=== PATIENT | female | born 1930 | race Caucasian/White ===

== ENCOUNTER 2020-08-17 11:10 | Emergency (ER) | payer MEDICARE ==
[~2020-08-17] VITALS: Ht 152.4 cm; Wt 42.3 kg
--- NOTE | 2020-08-17 11:20 | PHYS DOC ---
General Adult EDM: Chief Complaint: MECHANICAL FALL HPI: HPI: 89 yo F PMH primary progressive aphasia/dementia, gerd and hypothyroidism, presents the ED brought in by daughter with concern for possible fall. Daughter reports her mother is aphasic and does not speak. Had a full inpatient work-up 2 months ago (w/mri) that diagnosed pts' PPA, moved pt here from [place] so her daughter could care for her. History limited from patient. Daughter reports patient was seen normal at 7 AM but around 10:20 AM she came back and found patient on the floor just outside the bathroom-rash on left hip and both knees. Unsure if tetanus is up-to-date. Is not on any anticoagulation. Review of Systems: Review of Systems: ROS: very limited, pt does not write, able to respond via thumbs up means yes and down means no Allergies: Allergies: Allergies Coded Allergies Type Severity Reaction Last Updated Verified No Known Drug Allergies 08/17/20 No Physical Exam: PE: Constitutional: very thin and frail appearing HENT: right parietal hematoma Eyes: EOMI, conjunctiva normal, no discharge. Neck: Normal range of motion, supple, Cardiovascular: S1/2 present, regular rhythm Lungs & Thorax: bilateral equal chest rise, no tachypnea or increased work of breathing Abdomen: soft, no tenderness, Skin: Warm, dry, no erythema, abrasion (appears to be from crawling on carpet/friction rub) over both knees and left hip Back: No midline ttp, thoracic kyphosis, no CVA tenderness. [] Extremities: No tenderness, no cyanosis, no edema Neurologic: Alert, moving and four extemities and rolls on both sides Psychologic: Affect normal, mood normal. [] EKG: EKG: Sinus rhythm at 93 bpm, left axis deviation, normal intervals, no obvious T wave inversions, no ST elevations or ST depressions Q waves V4, V5 and V6 Radiology/Procedures: Radiology/Procedures: IMAGING REPORT Signed PATIENT: LUIS ALFREDO YEH ACCOUNT: [id number] : 1930 LOCATION: ER AGE: 89 SEX: F EXAM STATUS: PRE ER ORD. PHYSICIAN: JAMIE BUNCH DO REASON: fall? PROCEDURE: CT HEAD AND CERVICAL SPINE WO EXAM: CT head and cervical spine without contrast INDICATION: Fall COMPARISON: None TECHNIQUE: Axial CT imaging through the head and cervical spine without intravenous contrast. Sagittal and coronal reformats were obtained of the cervical spine. One or more of the following individualized dose reduction techniques were utilized for this examination: 1. Automated exposure control 2. Adjustment of the mA and/or kV according to patient size 3. Use of iterative reconstruction technique. FINDINGS: CT head: Artifact limits evaluation of the posterior fossa. There are possible old infarcts in the cerebellum. The ventricles and sulci are moderately enlarged, reflecting age-related volume loss. There is a mild burden of periventricular and deep hypoattenuating white matter lesions. Moore-white matter differentiation is maintained. There is no intracranial hemorrhage, acute infarct, or mass lesion. Basal cisterns are clear. The skull is intact. There is a right posterior parietal scalp hematoma.. Paranasal sinuses and mastoid air cells are clear. Globes and orbits are intact.. CT cervical spine: Evaluation of the cervical spine is limited by motion artifact. There is a compression fracture of T1 with 40 percent vertebral body height loss anteriorly. No retropulsion of cortex. Incompletely visualized superior endplate fracture of T4. Mild degenerative irregularities of the remaining visualized endplates. There is multilevel facet arthrosis and foraminal narrowing. No definite canal narrowing. Pleural-parenchymal scarring in the apices. There are calcifications in the carotid bifurcations. Alignment is normal. Moderate disc space narrowing throughout the cervical spine with small osteophytes, greatest at C6-C7 IMPRESSION: 1. No acute intracranial abnormality. Possible old cerebellar infarcts, evaluation of the posterior fossa is limited by artifact. 2. Right parietal scalp hematoma. 3. Mild superior endplate compression fracture of T1 and incompletely visualized compression fracture T4. These are age-indeterminate and may be old, however acute fractures are not excluded. Consider CT of the thoracic spine. Electronically signed by: Kena Vallejo MD (08/17/2020 12:46 PM) [id number] DICTATED AND SIGNED BY: KENA VALLEJO MD DATE: 08/17/201214 CC: MARCIAL IRVING; JAMIE BUNCH DO ~MTH0 0 IMAGING REPORT Signed PATIENT: LUIS ALFREDO YEH ACCOUNT: [id number] : 1930 LOCATION: ER AGE: 89 SEX: F EXAM STATUS: PRE ER ORD. PHYSICIAN: JAMIE BUNCH DO REASON: fall PROCEDURE: LEFT FEMUR XRAY Examination: XR PELVIS 1-2V, XR FEMUR_LEFT 1 VIEW, XR KNEE 3 VIEWS History: Reason: fall /pain Comparison/Correlation: None Findings: Frontal view of the pelvis, frontal and frog-leg lateral views of the left femur, 3 views of the right knee and 3 views of the knee were obtained. L5-S1 disc space narrowing. Osteopenia noted. Sacroiliac and hip joint spaces are unremarkable. Left femur is unremarkable. Knee joint spaces are adequate. Impression: No acute fracture or bony destruction. Osteopenia. No appreciable degenerative changes of the hip joints or knee joints especially for the patient's age. Consider further imaging if occult fracture is a persistent concern. Electronically signed by: Salvatore Yoder MD (08/17/2020 12:26 PM) [id number] DICTATED AND SIGNED BY: SALVATORE YODER MD DATE: 08/17/201218 CC: PCP,NO; JAMIE BUNCH DO ~MTH0 0 IMAGING REPORT Signed PATIENT: LUIS ALFREDO YEH ACCOUNT: [id number] : 1930 LOCATION: ER AGE: 89 SEX: F EXAM STATUS: PRE ER ORD. PHYSICIAN: JAMIE BUNCH DO REASON: fall PROCEDURE: CHEST AP ONLY Examination: XR CHEST 1V History: Reason: fall pain Comparison/Correlation: None Findings: Frontal view chest was obtained. Heart size is normal. No infiltrate or effusion. Osteopenia noted. No acute or displaced fracture identified. Questionable deformity at the lateral left mid thoracic ribs which raise question of old fractures. Evaluation is somewhat limited due to patient rotation on the image acquired. Impression: No active disease. Consider further imaging if acute fracture is a persistent concern Electronically signed by: Salvatore Yoder MD (08/17/2020 12:19 PM) [id number] DICTATED AND SIGNED BY: SALVATORE YODER MD DATE: 08/17/207 CC: MARCIAL IRVING; JAMIE BUNCH DO ~MTH0 0 IMAGING REPORT Signed PATIENT: LUIS ALFREDO YEH ACCOUNT: [id number] : 1930 LOCATION: ER AGE: 89 SEX: F EXAM STATUS: REG ER ORD. PHYSICIAN: JAMIE BUNCH DO REASON: fall PROCEDURE: CT CHEST ABD PELVIS W/CONTRAST Exam: CT of chest, abdomen and pelvis with contrast. CT thoracic and lumbar spine INDICATION: Fall TECHNIQUE: Sequential axial images through the chest, abdomen and pelvis obtai gaetano following the administration of 75 mL of Isovue-370 IV contrast. Sagittal and coronal reformatted images were reconstructed from the axial data and reviewed. Cone-down reconstructed images of the thoracic and lumbar spine were also reviewed. Comparisons: None FINDINGS: Visualized portions of the thyroid are unremarkable. No enlarged mediastinal lymph nodes. Heart size is normal. Small pericardial effusion. Coronary artery calcification. Thoracic aorta has normal course and caliber. Pulmonary artery is not enlarged. Airways are patent. Strandy opacities at dependent portion lungs likely representing atelectasis. No consolidation or pneumothorax. No pleural effusion. Mild diffuse hepatic steatosis. Spleen, pancreas, and adrenals are unremarkable. Gallbladder surgically absent. No perinephric inflammation or hydronephrosis. No renal or ureteral calculi are identified. Bladder is decompressed not well evaluated. Uterus is not enlarged. No abnormal adnexal mass. Extensive diverticulosis is noted at the sigmoid colon without evidence of acute diverticulitis. Main of the large and small bowel are unremarkable. Appendix is not identified. No free intra-abdominal air or fluid. No obstruction. Abdominal aorta has a normal course and caliber. Abdominal vasculature is patent. No enlarged intra-abdominal lymph nodes are identified. No suspicious osseous lesions or acute fractures. Thoracolumbar spine: There is mild compression deformity involving superior endplate of T1 and T4. There is wedge deformity of the T12 and L1 vertebral bodies. Displaced fracture to the thoracolumbar spine is not identified. Multilevel spondylotic changes lumbar spine greatest at L5-S1 with severe degenerative disease. There is diffuse bilateral facet arthropathy also noted. IMPRESSION: 1. Compression deformities involving superior endplates of T1 and T4. Wedge compression deformities of T12 and L1. These are technically age indeterminate. Correlate with point tenderness. 2. Otherwise, no sequela acute traumatic injury identified within the chest, abdomen or pelvis. Exposure: One or more of the following in the visualized dose reduction techniques were utilized for this examination: 1. Automated exposure control 2. Adjustment of the MA and/or KV according to patient size 3. Use of iterative of reconstructive technique Electronically signed by: Sandrine Dalal MD (08/17/2020 3:54 PM) [facility] DICTATED AND SIGNED BY: SANDRINE DALAL MD DATE: 08/17/20 1536 CC: PCP,NO; VO,JAMIE Luna DO ~MTH0 0 Heart Score: Risk Factors: Risk Factors: DM, Current or recent (<one month) smoker, HTN, HLP, family history of CAD, obesity. Risk Scores: Score 0 - 3: 2.5% MACE over next 6 weeks - Discharge Home Score 4 - 6: 20.3% MACE over next 6 weeks - Admit for Clinical Observation Score 7 - 10: 72.7% MACE over next 6 weeks - Early Invasive Strategies Course & Med Decision Making: Course & Med Decision Making Pertinent Labs and Imaging studies reviewed. (See chart for details) Concern for accidental fall with scalp hematoma, uti and old compression frac tures-on re-exam, no midline ttp over these regions. Daughter reports a fall in June, pt uses a walker. I spoke with Dr. Saucedo, neurology regarding patient's CT scanner head concerning for possible occipital infarct. He does not recommend MRI at his time, suspects chronic cva. Pt with no new neurologic deficits and is acting at her baseline. I did recommend admission for syncope, daughter declined. Pt is also refusing (thumbs down= no, shakes head no). Patient also with ketonuria, no anion gap and her heart rate has increased -I discussed this could represent infection versus dehydration, cannot exclude sepsis. Daughter reports she will observe patient very closely will return to the ER if her exam should change. Patient has had barely anything to eat or drink today. Was treated with fosfomycin in the ED. Strict ED return precautions were given for altered mental status, lethargy, distress, neurologic deficits or persistent nausea and vomiting. Encouraged urgent outpatient follow-up with PMD and neurology/cardiology. Life-threatening processes were considered but are low suspicion at this time, given history and physical exam. Pt was educated on all prescription medications and adverse effects. All patient's questions were answered and pt was stable at time of discharge. Life/limb-threatening differential includes but is not limited to, cardiac arrthymia/syncope, sepsis, intracranial hemorrhage, diffuse axonal injury, spinal cord syndrome, unstable cervical fracture or SCIWORA, fractures or joint dislocations, neurovascular injuries, organ injury or laceration, pneumothorax, pneumoperitoneum, pericardial tamponade, unstable pelvic fracture, compartment syndrome, flail chest or respiratory distress, burn injury or asphyxiation I spoken with the patient and her caregivers. I explained the patient's condition, diagnoses and treatment plan based on the information available to me at this time. I have answered the patient and her caregiver's questions and addressed any concerns. The patient and her caregivers have a good understanding of patient's diagnosis, condition and treatment plan as can be expected at this point. Vital signs have been stable. Patient's condition is stable and appropriate for discharge from the emergency department. Patient will pursue further outpatient evaluation with primary care physician or other designated or consulting physician as outlined in the discharge instructions. The patient and/or caregivers are agreeable to this plan of care and follow-up instructions have been explained in detail. The patient and/or caregivers have received these instructions in written form and have expressed an understanding of the discharge instructions. The patient and/or caregivers are aware that any significant change of condition or worsening of symptoms should prompt immediate return to this or the closest emergency department or call to 1. Roland Disclaimer: Roland Disclaimer: This electronic medical record was generated, in whole or in part, using a voice recognition dictation system. Departure Departure: Impression: Primary Impression: Fall Additional Impressions: UTI (urinary tract infection) Scalp hematoma Ketonuria Thoracic compression fracture Lumbar compression fracture Disposition: 01 DC HOME SELF CARE/HOMELESS Condition: STABLE Referrals: PCP,NO (PCP) FOLLOW UP WITH FAMILY MEDICINE: [facility], [facility] [address] [address] [place] [address] [place] [facility] [address] [place] [address], Patient Instructions: Back, Compression Fracture, Dehydration, Adult, Head Injury, Adult, Hematoma, Urinary Tract Infection Additional Instructions: FOLLOW UP WITH NEUROLOGY: Irma Saucedo MD [address] [facility], [address] [place] [address] OR [address] [place] [address] FOLLOW UP WITH NEUROLOGY: [facility] Address: [address] [facility] [address] [place] [address] FOLLOW UP WITH CARDIOLOGY: [facility] Address: [address] [facility] [address] [place] [address] EMERGENCY DEPARTMENT GENERAL DISCHARGE INSTRUCTIONS Thank you for coming to [facility] (ED) today and trusting us with you care. We trust that you had a positivie experience in our Emergency Department. If you wish to speak to the department management, you may call the director at [phone]. YOUR FOLLOW UP INSTRUCTIONS ARE FOLLOWS: 1. Do you have a private Doctor? If you do not have a private doctor, please ask for a resource list of physicians or clinics that may be able to assist you with follow up care. 2. The Emergency Physician has interpreted your x-rays. The X-Ray specialist will also review them. If there is a change in the findings, you will be notified in 48 hours when at all possible. 3. A lab test or culture has been done, your results will be reviewed and you will be notified if you need a change in treatment. ADDITIONAL INSTRUCTIONS AND INFORMATION: 1. Your care today has been supervised by a physician who is specially trained in emergency care. Many problems require more than one evaluation for a complete diagnosis and treatment. We recommend that you schedule your follow up appointment as recommended to ensure complete treatment of you illness or injury. If you are unable to obtain follow up care and continue to have a problem, or if your condition worsens, we recommend that you return to the ED. 2. We are not able to safely determine your condition over the phone nor are we able to give sound medical advice over the phone. For these safety reasons, if you call for medical advice we will ask you to come to the ED for further evaluation. 3. If you have any questions regarding these discharge instructions please call the ED at [phone]. SAFETY INFORMATION: In the interest of safety, wellness, and injury prevention; we encourage you to wear your sealbelt, if you smoke; quite smoking, and we encourage family to use a protective helmet for bicycling and other sporting events that present an increased risk for head injury. IF YOUR SYMPTOMS WORSEN OR NEW SYMPTOMS DEVELOP, OR YOU HAVE CONCERNS ABOUT YOUR CONDITION; OR IF YOUR CONDITION WORSENS WHILE YOU ARE WAITING FOR YOUR FOLLOW UP APPOINTMENT; EITHER CONTACT YOUR PRIMARY CARE DOCTOR, THE PHYSICIAN WHOSE NAME AND NUMBER YOU WERE GIVEN, OR RETURN TO THE ED IMMEDIATELY. JAMIE ABURTO DO Aug 17, 2020 11:20
[2020-08-17] MEDS ORDERED: HALOPERIDOL LACT 5 MG/ML VIAL. ONE (11:54)
[2020-08-17] MEDS ORDERED: HALOPERIDOL LACT 5 MG/ML VIAL. IM ONE ×2 (12:00→14:30)
[2020-08-17 12:01] LABS: BASO % 0 % (0-3); EOS % 0 % (0-3); HEMATOCRIT 39.2 % (36.0-47.0); HEMOGLOBIN 13.2 g/dL (12.0-15.5); LYMPH # 0.7 x10^3/uL (1.0-4.8); LYMPH % 6 % (24-48); MEAN CORPUSCULAR HEMOGLOBIN 31 pg (25-35); MEAN CORPUSCULAR HGB CONC 34 g/dL (31-37); MEAN CORPUSCULAR VOLUME 91 fL (79-100); MONO # 0.8 x10^3/uL (0.0-1.1); MONO % 7 % (0-9); NEUT # 9.6 x10^3uL (1.8-7.7); NEUT % 87 % (31-73); PLATELET COUNT 183 x10^3/uL (140-400); RED BLOOD COUNT 4.32 x10^6/uL (3.50-5.40); RED CELL DISTRIBUTION WIDTH 13.5 % (11.5-14.5); WHITE BLOOD COUNT 11.1 x10^3/uL (4.0-11.0)
[2020-08-17 12:09] LABS: CALCIUM 9.5 mg/dL (8.5-10.1); CREATININE 0.6 mg/dL (0.6-1.0); GFR 94.1; POTASSIUM 3.2 mmol/L (3.5-5.1)
[2020-08-17 12:15] LABS: ACETAMIN < 2.0 mcg/mL (10-30); SALIC < 2.8 mg/dL (2.8-20.0)
[2020-08-17 12:19] LABS: ALBUMIN 3.6 g/dL (3.4-5.0); ALBUMIN/GLOBULIN RATIO 1.1 (1.0-1.7); MAGNESIUM 2.2 mg/dL (1.8-2.4); TOTAL BILIRUBIN 0.9 mg/dL (0.2-1.0)
[2020-08-17 13:19] LABS: BARBITURATES NEG (NEG); BENZODIAZEPINES NEG (NEG); CANNABINOIDS NEG (NEG); COCAINE NEG (NEG); METHADONE NEG (NEG); OPIATES NEG (NEG); PHENCYCLIDINE NEG (NEG)
[2020-08-17 13:20] LABS: AMPHETAMINE/METHAMPHETAMINE NEG (NEG)
[2020-08-17 13:23] LABS: CLARITY,URINE HAZY; COLOR,URINE YELLOW
[2020-08-17 13:24] LABS: BACTERIA,URINE MANY /HPF (0-FEW); BILIRUBIN,URINE NEG (NEG); GLUCOSE,URINE NEG (NEG); NITRITE,URINE NEG (NEG); RBC,URINE 0 /HPF (0-2); SQUAMOUS EPITHELIAL CELL,UR OCC /LPF; UROBILINOGEN,URINE 0.2 mg/dL (0.2 mg/dL)
--- NOTE | 2020-08-17 13:34 | RAD ---
Examination: XR CHEST 1V History: Reason: fall pain Comparison/Correlation: None Findings: Frontal view chest was obtained. Heart size is normal. No infiltrate or effusion. Osteopeni a noted. No acute or displaced fracture identified. Questionable deformity at the lateral left mid th oracic ribs which raise question of old fractures. Evaluation is somewhat limited due to patient rota tion on the image acquired. Impression: No active disease. Consider further imaging if acute fracture is a persistent concern Electronically signed by: Salvatore Beckman MD (08/17/2020 12:19 PM) [id number]
--- NOTE | 2020-08-17 13:34 | RAD ---
Examination: XR PELVIS 1-2V, XR FEMUR_LEFT 1 VIEW, XR KNEE 3 VIEWS History: Reason: fall /pain Comparison/Correlation: None Findings: Frontal view of the pelvis, frontal and frog-leg lateral views of the left femur, 3 views o f the right knee and 3 views of the knee were obtained. L5-S1 disc space narrowing. Osteopenia noted. Sacroiliac and hip joint spaces are unremarkable. Left femur is unremarkable. Knee joint spaces are adequate. Impression: No acute fracture or bony destruction. Osteopenia. No appreciable degenerative changes of the hip xavier nts or knee joints especially for the patient's age. Consider further imaging if occult fracture is a persistent concern. Electronically signed by: Salvatore Beckman MD (08/17/2020 12:26 PM) [id number]
--- NOTE | 2020-08-17 13:34 | RAD ---
EXAM: CT head and cervical spine without contrast INDICATION: Fall COMPARISON: None TECHNIQUE: Axial CT imaging through the head and cervical spine without intravenous contrast. Sagitta l and coronal reformats were obtained of the cervical spine. One or more of the following individualized dose reduction techniques were utilized for this examinat ion: 1. Automated exposure control 2. Adjustment of the mA and/or kV according to patient size 3. Use of iterative reconstruction technique. FINDINGS: CT head: Artifact limits evaluation of the posterior fossa. There are possible old infarcts in the cerebellum. The ventricles and sulci are moderately enlarged, reflecting age-related volume loss. There is a mil d burden of periventricular and deep hypoattenuating white matter lesions. Moore-white matter differe ntiation is maintained. There is no intracranial hemorrhage, acute infarct, or mass lesion. Basal cis terns are clear. The skull is intact. There is a right posterior parietal scalp hematoma.. Paranasal sinuses and masto id air cells are clear. Globes and orbits are intact.. CT cervical spine: Evaluation of the cervical spine is limited by motion artifact. There is a compression fracture of T1 with 40 percent vertebral body height loss anteriorly. No retropulsion of cortex. Incompletely visua lized superior endplate fracture of T4. Mild degenerative irregularities of the remaining visualized endplates. There is multilevel facet arthrosis and foraminal narrowing. No definite canal narrowing. Pleural-parenchymal scarring in the apices. There are calcifications in the carotid bifurcations. Ali gnment is normal. Moderate disc space narrowing throughout the cervical spine with small osteophytes, greatest at C6-C7 IMPRESSION: 1. No acute intracranial abnormality. Possible old cerebellar infarcts, evaluation of the posterior f amairani is limited by artifact. 2. Right parietal scalp hematoma. 3. Mild superior endplate compression fracture of T1 and incompletely visualized compression fracture T4. These are age-indeterminate and may be old, however acute fractures are not excluded. Consider C T of the thoracic spine. Electronically signed by: Kena Vallejo MD (08/17/2020 12:46 PM) [id number]
--- NOTE | 2020-08-17 13:34 | EKG ---
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
[2020-08-17] MEDS ORDERED: IOHEXOL 300 MG/ML 75 ML VIAL. IV ONE (14:15)
[2020-08-17] MEDS ORDERED: FOSFOMYCIN TROMETHAMINE 3 GM PACKET PO ONE (14:30)
--- NOTE | 2020-08-17 15:56 | RAD ---
Exam: CT of chest, abdomen and pelvis with contrast. CT thoracic and lumbar spine INDICATION: Fall TECHNIQUE: Sequential axial images through the chest, abdomen and pelvis obtained following the admin istration of 75 mL of Isovue-370 IV contrast. Sagittal and coronal reformatted images were reconstruc kumar from the axial data and reviewed. Cone-down reconstructed images of the thoracic and lumbar spine were also reviewed. Comparisons: None FINDINGS: Visualized portions of the thyroid are unremarkable. No enlarged mediastinal lymph nodes. Heart size is normal. Small pericardial effusion. Coronary artery calcification. Thoracic aorta has n ormal course and caliber. Pulmonary artery is not enlarged. Airways are patent. Strandy opacities at dependent portion lungs likely representing atelectasis. No consolidation or pneumothorax. No pleural effusion. Mild diffuse hepatic steatosis. Spleen, pancreas, and adrenals are unremarkable. Gallbladder surgical ly absent. No perinephric inflammation or hydronephrosis. No renal or ureteral calculi are identified. Bladder is decompressed not well evaluated. Uterus is not enlarged. No abnormal adnexal mass. Extensi ve diverticulosis is noted at the sigmoid colon without evidence of acute diverticulitis. Main of the large and small bowel are unremarkable. Appendix is not identified. No free intra-abdominal air or f luid. No obstruction. Abdominal aorta has a normal course and caliber. Abdominal vasculature is patent. No enlarged intra-abdominal lymph nodes are identified. No suspicious osseous lesions or acute fractures. Thoracolumbar spine: There is mild compression deformity involving superior endplate of T1 and T4. There is wedge deformit y of the T12 and L1 vertebral bodies. Displaced fracture to the thoracolumbar spine is not identified. Multilevel spondylotic changes lumbar spine greatest at L5-S1 with severe degenerative disease. There is diffuse bilateral facet arthropathy also noted. IMPRESSION: 1. Compression deformities involving superior endplates of T1 and T4. Wedge compression deformities of T12 and L1. These are technically age indeterminate. Correlate with point tenderness. 2. Otherwise, no sequela acute traumatic injury identified within the chest, abdomen or pelvis. Exposure: One or more of the following in the visualized dose reduction techniques were utilized for this examination: 1. Automated exposure control 2. Adjustment of the MA and/or KV according to patient size 3. Use of iterative of reconstructive technique Electronically signed by: Sandrine Harris MD (08/17/2020 3:54 PM) [facility]ENTERLAUREN
[2020-08-17 17:28] VITALS: BP 152/84
[2020-08-18] MEDS ORDERED: CELE100C PO (16:18)
[2020-08-18] MEDS ORDERED: LEVO75TA5 PO (16:18)
== END 2020-08-17 18:10 | disposition home or self-care (01) ==
LOC: ER 11:10
DX: S32.010A Wedge compression fracture of first lumbar vertebra, initial encounter for closed fracture (principal); S22.040A Wedge compression fracture of fourth thoracic vertebra, initial encounter for closed fracture; S22.010A Wedge compression fracture of first thoracic vertebra, initial encounter for closed fracture; S00.03XA Contusion of scalp, initial encounter; R82.4 Acetonuria; N39.0 Urinary tract infection, site not specified; E03.9 Hypothyroidism, unspecified; W18.39XA Other fall on same level, initial encounter; Y93.89 Activity, other specified; Y92.89 Other specified places as the place of occurrence of the external cause; Y99.8 Other external cause status; Z79.899 Other long term (current) drug therapy
CPT/HCPCS: 36415; 70450; 71045; 71260; 72125; 72128; 72131; 72170; 73552; 73562; 74177; 80053; 80307; 80329; 81001; 83735; 84484; 85025; 87077; 87086; 87186; 93005; 96372; 99285; J1630; P9612; Q9967; G0480

== ENCOUNTER 2020-08-18 11:57 | Inpatient (IN) | payer MEDICARE ==
[~2020-08-18] VITALS: Ht 152.4 cm; Wt 40.8 kg
--- NOTE | 2020-08-18 12:21 | PHYS DOC ---
Past History Past Medical History: Hypothyroid, Other Additional Past Medical Histor: PPA Past Surgical History: Other Additional Past Surgical Histo: KIDNEY SURGERY Alcohol Use: None General Adult EDM: Chief Complaint: FATIGUE HPI: HPI: 89-year-old female past medical history significant for primary progressive aphasia and hypothyroidism, presents the ED after patient was discharged by myself yesterday, here with patient's biological daughter who is providing care for patient stating " I found her on the floor again by her bed." Patient is refusing to eat or drink and has primarily slept since being discharged. Admission was recommended by myself but daughter declined because pt didn't want to stay. Daughter reports pt is not as responsive now. Review of Systems: Review of Systems: ROS: limited, pt aphasic and nods head, thumbs up = yes, thumbs down = no Allergies: Allergies: Allergies Coded Allergies Type Severity Reaction Last Updated Verified No Known Drug Allergies 08/17/20 No Physical Exam: PE: Constitutional: Frail, malnourished, less alert today and primarily sleeping HENT: Normocephalic, atraumatic, no new signs of trauma Eyes: EOMI, conjunctiva normal, no discharge. Neck: Normal range of motion, supple, Cardiovascular: S1/2 present, regular rhythm, mild tachycardia on presentation Lungs & Thorax: bilateral equal chest rise, no tachypnea or increased work of breathing Abdomen: soft, no tenderness, Skin: Warm, dry, no erythema, no rash. [] Back: No tenderness, no CVA tenderness. [] Extremities: No tenderness, no cyanosis, Neurologic: Moving all 4 extremities, no focal deficits, is primarily sleeping, does not wake to voice, wakes to touch Psychologic: Affect normal, mood normal. [] EKG: EKG: [] Radiology/Procedures: Radiology/Procedures: IMAGING REPORT Signed PATIENT: LUIS ALFREDO YEH ACCOUNT: [id number] : 1930 LOCATION: ER AGE: 89 SEX: F EXAM STATUS: REG ER ORD. PHYSICIAN: JAMIE BUNCH DO REASON: fall PROCEDURE: CT HEAD WO CONTRAST EXAM: CT head without contrast INDICATION: Fall COMPARISON: CT head 08/17/2020 TECHNIQUE: Axial CT imaging through the head without intravenous contrast. One or more of the following individualized dose reduction techniques were utilized for this examination: 1. Automated exposure control 2. Adjustment of the mA and/or kV according to patient size 3. Use of iterative reconstruction technique. FINDINGS: Mild artifact at the skull base. The ventricles and sulci are moderately enlarged, reflecting age-related volume loss. There is a mild burden of periventricular hypoattenuating white matter lesions. Moore-white matter differentiation is maintained. There is no intracranial hemorrhage, acute infarct, or mass lesion. Basal cisterns are clear. The skull is intact. Right parietal scalp hematoma has decreased. Paranasal sinuses and mastoid air cells are clear. Globes and orbits are intact.. IMPRESSION: 1. No acute intracranial abnormality. 2. Age-related volume loss and mild periventricular hypoattenuating white matter chronic small vessel ischemic changes 3. Decreased right scalp hematoma. 4. Questioned old infarct in the cerebellum on prior exam was due to artifact. Electronically signed by: Kena Vallejo MD (08/18/2020 1:14 PM) [id number] DICTATED AND SIGNED BY: KENA VALLEJO MD DATE: 08/18/20 1310 CC: PCP,NO; JAMIE BUNCH DO ~MTH0 0 Heart Score: Risk Factors: Risk Factors: DM, Current or recent (<one month) smoker, HTN, HLP, family history of CAD, obesity. Risk Scores: Score 0 - 3: 2.5% MACE over next 6 weeks - Discharge Home Score 4 - 6: 20.3% MACE over next 6 weeks - Admit for Clinical Observation Score 7 - 10: 72.7% MACE over next 6 weeks - Early Invasive Strategies Course & Med Decision Making: Course & Med Decision Making Pertinent Labs and Imaging studies reviewed. (See chart for details) Concern for dehydration, frequent falls in the setting of PPA. I do suspect underlying dementia. UTI tx'ed yesterday with fosfomycin in the ED. Now has nitrate positive UTI. Lengthy discussion with pts' daughter-she is aware that these could be signs of old age/impeding and is requesting rehab/considering LTC given inability to care 24/hrs/day for pt. Will tx uti to see if pts' exam changes. I reviewed pts' living will and d/w daughter, pts' dpoa (has papers). Daughter requests pt to be a DNR. Pt accepted for admission by Dr. Monique, was stable at time of admission. I have spoken with the patient and/or caregivers. I have explained the patient's condition, diagnosis and treatment plan based on the information available to me at this time. I have answered the patient's and/or caregivers questions and answered any concerns. The patient and/or caregivers have as good an understanding of the patient's diagnosis, condition and treatment plan as can be expected at this point. The patient has been stabilized within the capability of the emergency department. The patient will be transported for further care and management or will be moved to an observation or inpatient service. I have communicated with the staff or medical practitioner taking over this patient's care. Dragon Disclaimer: Dragon Disclaimer: This electronic medical record was generated, in whole or in part, using a voice recognition dictation system. Departure Departure: Impression: Primary Impression: Dehydration Additional Impressions: Repeated falls Primary progressive aphasia UTI (urinary tract infection) Disposition: 09 ADMITTED INPT THIS HOSP Admitting Physician: Gomez Monique Condition: GUARDED Referrals: PCPMARCIAL (PCP) JAMIE BUNCH DO Aug 18, 2020 12:20
[2020-08-18] MEDS ORDERED: IV NORMAL SALINE 1,000ML 1,000 ML IV ONE (12:30)
--- NOTE | 2020-08-18 13:17 | RAD ---
EXAM: CT head without contrast INDICATION: Fall COMPARISON: CT head 08/17/2020 TECHNIQUE: Axial CT imaging through the head without intravenous contrast. One or more of the following individualized dose reduction techniques were utilized for this examinat ion: 1. Automated exposure control 2. Adjustment of the mA and/or kV according to patient size 3. Use of iterative reconstruction technique. FINDINGS: Mild artifact at the skull base. The ventricles and sulci are moderately enlarged, reflecting age-related volume loss. There is a mild burden of periventricular hypoattenuating white matter lesions. Moore-white matter differentiation i s maintained. There is no intracranial hemorrhage, acute infarct, or mass lesion. Basal cisterns are clear. The skull is intact. Right parietal scalp hematoma has decreased. Paranasal sinuses and mastoid air c ells are clear. Globes and orbits are intact.. IMPRESSION: 1. No acute intracranial abnormality. 2. Age-related volume loss and mild periventricular hypoattenuating white matter chronic small vesse l ischemic changes 3. Decreased right scalp hematoma. 4. Questioned old infarct in the cerebellum on prior exam was due to artifact. Electronically signed by: Kena Vallejo MD (08/18/2020 1:14 PM) [id number]
[2020-08-18 14:17] LABS: BACTERIA,URINE FEW /HPF (0-FEW); BILIRUBIN,URINE NEG (NEG); CLARITY,URINE CLOUDY; COLOR,URINE YELLOW; GLUCOSE,URINE NEG (NEG); HYALINE CASTS, URINE FEW /HPF; NITRITE,URINE POS (NEG); SQUAMOUS EPITHELIAL CELL,UR FEW /LPF; UROBILINOGEN,URINE 0.2 mg/dL (0.2 mg/dL); WBC,URINE 20-40 /HPF (0-4)
[2020-08-18] MEDS ORDERED: ONDANSETRON PF 4 MG/2 ML VIAL. IVP PRN (14:45)
[2020-08-18 15:45] VITALS: BP 138/69
[2020-08-18] MEDS ORDERED: LEVO75TA5 PO (16:18)
[2020-08-18] MEDS ORDERED: CELE100C PO (16:18)
--- NOTE | 2020-08-18 16:23 | NUR ---
ADMISSION NOTE-Pt arrives via EMS from ED. She is non-verbal, no oxygen demands, no other devices in use. Transferred to bed from cot, VS assessed. Spoke with daughter for medication reconciliation et pt/family history information.
[2020-08-18] MEDS: IV NORMAL SALINE 1,000ML 1,000 ML IV SCH (17:11)
[2020-08-18 18:53] VITALS: BP 97/60
[2020-08-18 22:59] VITALS: BP 148/80
[2020-08-19] MEDS: IV NORMAL SALINE 1,000ML 1,000 ML IV SCH ×2 (00:45→11:55)
[2020-08-19 05:09] VITALS: BP 150/83
--- NOTE | 2020-08-19 05:25 | NUR ---
Nursing note: Pt nonverbal, incontinent of bladder. Pt seemed to sputter on thin water, refused more liquids. Pt seemed amenable to thickened liquids when discussed it. C/o pain, heating pad made patient comfortable. Communicates mostly through thumbs up or thumbs down to indicate yes/no.
[2020-08-19] MEDS ORDERED: LEVOTHYROXINE 75 MCG TABLET PO SCH (09:00)
--- NOTE | 2020-08-19 09:25 | HP ---
ADMIT DATE: 08/18/2020 ATTENDING PHYSICIAN: Dr. Soriano. CHIEF COMPLAINT: Fall. HISTORY OF PRESENT ILLNESS: The patient is an 89-year-old female with a diagnosis of primary progressive aphasia and underlying dementia. She is frail. She is elderly. The daughter brought her home. She was seen in the ED on Thursday once again yesterday. She is falling. She found her on the floor. She cannot take care of her. No obvious long bone fractures. It is the goal of this admission because the patient cannot take care of herself and the daughter cannot function to arrange for higher level of care. There is no active disease process. The patient remains nonverbal. She does not appear in any acute distress. She is feeding herself. She could not give any history. PAST MEDICAL HISTORY: Significant for the progressive primary aphasia, generalized debilitation and hypothyroidism. CURRENT MEDICATIONS: Include Celebrex and Synthroid. ALLERGIES: She has no known drug allergies. SOCIAL HISTORY: Nonsmoker, nondrinker. FAMILY HISTORY: Unobtainable. REVIEW OF SYSTEMS: Unobtainable. PHYSICAL EXAMINATION: GENERAL: When I saw her, this is a mute elderly female. INITIAL VITAL SIGNS: Showed a blood pressure 150/83 mmHg, temperature is 97.9 degrees Fahrenheit, pulse 88 and regular, respiratory rate 18, oxygen saturation 95% on room air. HEENT: Head is without trauma. Pupils are reactive. Sclerae nonicteric. The oropharynx is clear. NECK: Supple. No bruits identified. LUNGS: Otherwise clear. CARDIOVASCULAR: Showed regular heart tones. No gallops. ABDOMEN: Soft. EXTREMITIES: Without edema. NEUROLOGIC FINDING: The patient is fairly alert. She is pleasantly confused otherwise and she is aphasic. She does not speak. We cannot assess her gait at this time due to inability to comprehend. PERTINENT LABORATORY AND X-RAY STUDIES: The obligatory CT of the head showed enlarged ventricles due to volume loss. There are no acute strokes or bleed. Decreased right scalp hematoma, questionable infarct in the cerebellum. LABORATORY STUDIES: The hemoglobin was 11.1 g/dL, white count 13,200. Chemistry panel: Sodium 142, potassium 3.2 mEq. Nonfasting blood sugar 111. Troponins were negative. ASSESSMENT: 1. An 89-year-old female with frequent falls, inability to care for herself. The daughter cannot take care of her either. 2. Primary progressive aphasia. 3. Generalized debilitation. 4. Hypothyroidism. PLAN: 1. Observation status admission. 2. We will get case picker to discuss with the family a higher level of care. If she does not want, she can be discharged home to her daughter. TRACEY SORIANO MD DR: CHANTE/sita JOB#: [id number] / [id number]
[2020-08-19 11:03] VITALS: BP 168/75
[2020-08-19 15:21] VITALS: BP 161/81
[2020-08-19 19:52] VITALS: BP 155/72
[2020-08-19 22:17] VITALS: BP 166/89
[2020-08-20 05:10] VITALS: BP 168/73
[2020-08-20] MEDS: LEVOTHYROXINE 75 MCG TABLET PO SCH (05:47)
--- NOTE | 2020-08-20 06:22 | NUR ---
pt was in bed upon assessment and med pass. pt is unable to speak and uses a white board for communication. pt will also answer yes and no question with thumbs up/down method. pt is incont of B&B. applied skin prep to pts heals to help prevent skin break down, also applied a foam dressing to pts mid-upper back due to reddened area. pt didnt due well with crushed meds in applesauce, she was unable to swallow the applesauce completely. pt is already on [facility] soft diet and refused thickend liquids. Will pass this information on to next nurse.
--- NOTE | 2020-08-20 09:32 | PN ---
DATE: 08/20/2020 ATTENDING PHYSICIAN: Dr. Soriano. SUBJECTIVE: The patient is aphasic and nonverbal. She has a blank stare. OBJECTIVE FINDINGS: VITAL SIGNS: Blood pressure today is 168/73, pulse is 89 and regular, temperature 96.9 degrees Fahrenheit, oxygen saturation 97% on room air. HEENT: Head is without trauma. Pupils are reactive. Sclerae are nonicteric. Oropharynx is clear. NECK: Supple. No stridor. LUNGS: Shallow respirations. CARDIOVASCULAR: Showed distant heart tones. No gallops. ABDOMEN: Soft. EXTREMITIES: Show muscle wasting, some contractures. She is nonambulatory. NEUROLOGIC: She is aphasic and nonambulatory. LABORATORY DATA: Her urine was abnormal, but the cultures showed no active growth. ASSESSMENT: 1. An 89-year-old female with progressive aphasia. 2. Inability to care for self. 3. Generalized debilitation. 4. Hypothyroidism. PLAN: 1. Diet as tolerated. 2. We can stop her antibiotics given the negative cultures. 3. manager ems is visiting with the daughter and power of siderographist to look for care home placement. TRACEY SORIANO MD DR: CHANTE/sita JOB#: [id number] / [id number]
[2020-08-20 10:23] VITALS: BP 144/90
[2020-08-20 14:37] VITALS: BP 142/81
--- NOTE | 2020-08-20 16:59 | NUR ---
EOS NOTE-Pt is up in chair 2x with therapies today. Personal alarm in use while in chair. PO intakes are poor, but baseline for patient according to family. Denies pain in any location. Plan for discharge home with [facility] tomorrow. Family to transport at 1600.
[2020-08-20 19:42] VITALS: BP 139/62
[2020-08-20 22:25] VITALS: BP 151/69
[2020-08-21 06:01] VITALS: BP 153/66
[2020-08-21] MEDS: LEVOTHYROXINE 75 MCG TABLET PO SCH (06:15)
--- NOTE | 2020-08-21 09:12 | NUR ---
DISCHARGE NOTE-DC HOME WITH HOSPICE SERVICES PLANNED FOR 1600 TODAY. MD HAS COMPLETED DC ORDERS, PIV HAS BEEN REMOVED IN PREPARATION FOR DC HOME WELL. ALL POSSESSIONS GATHERED ET READY FOR DC LATER TODAY
--- NOTE | 2020-08-21 10:24 | DS ---
DATE OF DISCHARGE: 08/21/2020 ATTENDING PHYSICIAN: Dr. Soriano. FINAL DISCHARGE DIAGNOSES: 1. Frequent falls. No obvious long bone fractures. 2. Primary progressive aphasia. 3. Generalized debilitation. 4. Hypothyroidism, on replacement. HISTORY AND PHYSICAL: This is an 89-year-old female with a diagnosis of primary progressive aphasia. Her daughter has been trying to care for at home. She has been falling. She was admitted for further evaluation. PHYSICAL EXAMINATION: Please see the dictated note. PERTINENT LABORATORY AND X-RAY STUDIES: The obligatory CT of the head showed no acute intracranial abnormalities, age-related volume loss and periventricular hypoattenuation with chronic small-vessel ischemic changes, decreased right scalp hematoma, questionable old infarct in the cerebellum. The hemoglobin was 13.2 g/dL with white count 11,000. Electrolytes: Sodium 142; potassium 3.2 mEq, asymptomatic; creatinine was 0.6 mg percent. Urinalysis showed trace leukocyte esterase, some white cells. Cultures were negative after 48 hours. COURSE IN THE HOSPITAL: The patient was admitted. Physical therapy saw her and their recommendation on the chart. We had classification case manager discuss long-term plans with the daughter and the power of civil litigation attorney. Initially, she wanted to go to a group home, but at this time, she decided to take her home with hospice care at home. On the third hospital day, she was discharged then with the following medications, Synthroid only. I do not recommend her Celebrex because it can cause worsening confusion. She is a DNR. Her prognosis is terminal. She was discharged from our hospital in stable condition with explicit instructions and followup care. TRACEY SORIANO MD DR: CHANTE/sita JOB#: [id number] / [id number]
[2020-08-21 11:36] VITALS: BP 135/84
== END 2020-08-21 15:42 | disposition hospice, home (50) | DRG 641 ==
LOC: ER 11:57 → 1 SOUTH 14:45 → ER 15:20
PROVIDERS: ADMIT Hospitalist; ATTEND Hospitalist
DX: E86.0 Dehydration (principal); N39.0 Urinary tract infection, site not specified; R47.01 Aphasia; Z51.5 Encounter for palliative care; Z66 Do not resuscitate; E03.9 Hypothyroidism, unspecified; F03.90 Unspecified dementia, unspecified severity, without behavioral disturbance, psychotic disturbance, mood disturbance, and anxiety; R29.6 Repeated falls; Z20.828 Contact with and (suspected) exposure to other viral communicable diseases; R54 Age-related physical debility
CPT/HCPCS: 70450; 81001; 87086; 96360; J0696; P9612; U0003; 97116; 97535; 99285-25; J7030